=== PATIENT | female | born 1970 | race Caucasian/White ===

== ENCOUNTER 2019-01-02 07:51 | Emergency (ER) | payer BC, OTHER ==
--- NOTE | 2019-01-02 07:53 | ER Report ---
History and Physical Time Seen By MD: 07:49 HPI/ROS CHIEF COMPLAINT: Right ankle pain HISTORY OF PRESENT ILLNESS: Patient is a 48-year-old female who was on a stepladder and fell approximately 3 feet and had an inversion ankle injury. She notes significant swelling below pain unless weight bearing. Prior injury and no other injuries noted. REVIEW OF SYSTEMS: Musculoskeletal: No back pain. Right ankle pain Allergies: Coded Allergies: acetaminophen (Verified Allergy, Unknown, HIVES, 01/02/19) Home Meds Active Scripts Oxycodone Hcl (OXYCODONE HCL) 5 Mg Tablet, 5 MG PO Q4H for PAIN, #15 TAB 0 Refills Prov:GREGORY ARMIJO MD 01/02/19 Past Medical/Surgical History Noncontributory towards this chief complaint Hx Alcohol Use: Yes (4 TIMES A WEEK) Constitutional Vital Sign - Last 24 Hours 01/02/19 07:58 Temp 98.1 Pulse 81 Resp 14 B/P (MAP) 149/91 Pulse Ox 92 O2 Delivery Room Air Physical Exam General appearance: alert no distress Right ankle: Significant swelling and bruising to the ankle There is no obvious deformity to the ankle. There is moderate tenderness to the lateral malleolus. Ankle joint is stable and there is no tenderness over the achilles tendon. Neurologic exam: The patient has normal sensation distal to the injury. Vascular exam: Normal pulses and capillary refill in the foot [ ] DIFFERENTIAL DIAGNOSIS: After history and physical exam differential diagnosis was considered for ankle injury including sprain, fracture, dislocation and soft tissue injury. Medical Decision Making ED Course/Re-evaluation ED Course 01/02/2019 8:03:58 am plan at this time will be x-ray of the right ankle. Patient was offered pain medication but refused at this time. 01/02/2019 8:31:53 am Procedure: Splint placement. An air ankle splint was applied. After application of the splint I returned and re-examined the patient. The splint was adequately immobilizing the joint and distal to the splint the patient's circulation and sensation was intact. Decision to Disposition Date: Jan 02, 2019 Decision to Disposition Time: 08:32 Depart Departure Latest Vital Signs Vital Signs Date Time Temp Pulse Resp B/P (MAP) Pulse Ox O2 Delivery O2 Flow Rate FiO2 01/02/19 07:58 98.1 81 14 149/91 92 Room Air Impression: Primary Impression: Moderate right ankle sprain Condition: Improved Disposition: HOME OR SELF-CARE New Scripts Oxycodone Hcl (OXYCODONE HCL) 5 Mg Tablet 5 MG PO Q4H for PAIN, #15 TAB 0 Refills Prov: GREGORY ARMIJO MD 01/02/19 Patient Instructions: Ankle Sprain (ED), Crutch Instructions (ED) Problem Qualifiers Primary Impression: Moderate right ankle sprain Encounter type: initial encounter Qualified Codes: S93.401A - Sprain of unspecified ligament of right ankle, initial encounter GREGORY ARMIJO MD Jan 02, 2019 07:53
[2019-01-02] MEDS ORDERED: OXYC5TAB38 PO (08:35)
--- NOTE | 2019-01-02 08:36 | RADIOLOGY IMAGING REPORT ---
FACILITY: [facility] PATIENT NAME: Gena Galan : 1970 MR: [id number] V: [id number] EXAM DATE: ORDERING PHYSICIAN: GREGORY ARMIJO TECHNOLOGIST: Location: [facility] Patient: Gena Galan : 1970 Visit/Account:[id number] Date of Sevice: 01/02/2019 ANKLE 3 VIEW MIN RIGHT Indication: Right ankle injury. Comparison: None available. Findings: 3 views of the right ankle. Lateral soft tissue swelling. No evidence of acute fracture, dislocation, or radiopaque foreign body. Normal mineralization, joint spaces, and alignment. Impression: No acute osseous abnormality of the right ankle. Report Dictated By: Jhon Mora MD at 01/02/2019 8:27 AM Report E-Signed By: Jhon Mora MD at 01/02/2019 8:29 AM WSN:[id number]
[2019-01-02 08:41] VITALS: BP 149/91
== END 2019-01-02 08:48 | disposition home or self-care (01) ==
LOC: ER 08:08
DX: S93.401A Sprain of unspecified ligament of right ankle, initial encounter (principal)
CPT/HCPCS: 73610; 99283; L1930